=== PATIENT | male | born 1995 ===

== ENCOUNTER 2018-04-01 23:09 | Emergency (ER) | payer SELFPAY ==
[~2018-04-01] VITALS: Ht 177.8 cm; Wt 97.0 kg
[2018-04-02] MEDS ORDERED: LIDOCAINE HCL/PF 1% 10 MG/ML 5ML VIAL IJ ONE (01:45)
[2018-04-02] MEDS ORDERED: TETANUS, DIPHTHERIA, PERTUSSIS VAC/PF 0.5ML (>7YR OLD) IM ONE (01:45)
[2018-04-02] MEDS ORDERED: KETOROLAC 60MG/2ML VIAL IM ONE (01:45)
[2018-04-02] MEDS ORDERED: BACITRACIN ZINC OINT UDPKT TOP ONE ×2 (01:45→04:30)
[2018-04-02 05:05] VITALS: BP 119/77
== END 2018-04-02 05:05 | disposition home or self-care (01) ==
LOC: ER 23:09
DX: S01.81XA Laceration without foreign body of other part of head, initial encounter (principal); Z90.89 Acquired absence of other organs; Y04.8XXA Assault by other bodily force, initial encounter; Y93.89 Activity, other specified; Y92.89 Other specified places as the place of occurrence of the external cause; Y99.8 Other external cause status
CPT/HCPCS: 90471; 90715; 96372; 99284; J1885; J3490; Z7610